=== PATIENT | male | born 1980 | race Caucasian/White ===

== ENCOUNTER 2017-12-14 14:04 | Emergency (ER) | payer OTHER, MEDICAID ==
[2017-12-14 14:12] VITALS: BP 141/88; PULSE 80; RESP 18; TEMP 98.4; O2SAT 93
--- NOTE | 2017-12-14 14:22 | EDPHY ---
H & P Time Seen by Provider: 12/14/17 14:19 HPI/ROS: CHIEF COMPLAINT: Laceration to right thumb and right index finger HISTORY OF PRESENT ILLNESS: 37-year-old left hand dominant male with sharpening a knife when he sustained accidental laceration to his right distal phalanx index finger and distal phalanx of his thumb shortly prior to arrival. Tetanus up-to-date. No paresthesia. PHYSICAL EXAM (Prior to examination, patient consented to physical exam, hands were washed and my usual and customary physical exam procedures followed) 1) GENERAL: Well-developed, well-nourished, alert and oriented. Appears to be in no acute distress. 2) HEAD: Normocephalic 3) HEENT: sclera anicteric 4) LUNGS: Breathing comfortably. 5) MUSCULOSKELETAL: Right thumb: Distal phalanx superficial skin avulsion actively bleeding. Flexor extensor function at the MCP IP intact. Right index finger 1.5 cm flap laceration with viable flap tissue to the distal phalanx. Flexor extensor function at the MCP PIP D IP intact. Smoking Status: Current every day smoker Constitutional: Initial Vital Signs Temperature (C) 36.9 C 12/14/17 14:10 Heart Rate 80 12/14/17 14:10 Respiratory Rate 18 12/14/17 14:10 Blood Pressure 141/88 H 12/14/17 14:10 O2 Sat (%) 93 12/14/17 14:10 O2 Delivery Mode Room Air Allergies/Adverse Reactions: lorazepam [From Ativan] Allergy (Severe, Verified 12/14/17 14:07) seizure hydromorphone [From Dilaudid] Allergy (Verified 12/14/17 14:09) oxycodone [From OxyContin] Allergy (Verified 12/14/17 14:10) Home Medications: Medication Instructions Recorded CITALOPRAM HYDROBROMIDE [Celexa] 40 mg PO 12/04/10 Cetirizine HCl [Zyrtec] 10 mg PO 12/04/10 Fluticasone/Salmeter 250/50Mcg 1 inh IH BID 12/04/10 [Advair 250/50] Albuterol [Ventolin Hfa] 2 puffs IH Q4PRN PRN 07/26/11 Flexeril 12/14/17 Nuvigil 12/14/17 Sinemet 10/100 MG (*) 12/14/17 Singulair 12/14/17 VYVANSE 12/14/17 MDM/Departure - MDM Procedures: Procedure: Laceration repair. I explained the indications, risks and benefits for both laceration repair and anesthetic administration. Verbal consent was obtained from the patient . The laceration on the thumb and index finger were anesthetized using 0.5% bupivicaine without epinephrine digital nerve block. After anesthetic administered the patient was observed for a period of time and had no apparent adverse effects. The wound was cleaned, prepped, draped in normal sterile fashion and explored to its base. No foreign body seen, no foreign bodies palpated. There were no deep structures involved. No tendon injury was identified. Surgicel was placed on the thumb resulting in hemostasis. The index finger laceration was repaired with 3 simple interrupted 5 O Prolene sutures. The wound repair was simple. The procedure was performed by myself. Patient has been informed that scarring will occur, although efforts have been made to minimize this. ED Course/Re-evaluation: Care of patient under supervision of secondary supervising physician Dr Masterson . At this time the flap tissue appears to be viable however the patient has been informed that the long-term viability this tissue is not known at this time. Therefore close follow-up will be necessary. Given usual and customary wound precautions and instructions. - Depart Disposition: Home, Routine, Self-Care Clinical Impression: Finger laceration Qualifiers: Encounter type: initial encounter Finger: index finger Damage to nail status: without damage Foreign body presence: without foreign body Laterality: right Qualified Code(s): S61.210A - Laceration without foreign body of right index finger without damage to nail, initial encounter Condition: Good Instructions: Care For Your Stitches (ED), Laceration (ED) Additional Instructions: Return to the ER if you develop redness, swelling, discharge, warmth to the wound, red streaks going up your arm, or any other symptoms that concern you. Referrals: Return, to the ER in 10 days for suture removal [Other] - As per Instructions Eligio Ricardo MD [Medical Doctor] - 5-7 days, call for appt.
== END 2017-12-14 15:00 | disposition home or self-care (01) ==
PROC: 0HQFXZZ Repair Right Hand Skin, External Approach (ICD-10-PCS; principal; 2017-12-14)
DX: S61.210A Laceration without foreign body of right index finger without damage to nail, initial encounter (principal); F17.200 Nicotine dependence, unspecified, uncomplicated; W26.0XXA Contact with knife, initial encounter